=== PATIENT | female | born 1960 | race Caucasian/White ===

== ENCOUNTER 2017-01-15 16:19 | Inpatient (IN) ==
--- NOTE | 2017-01-15 16:43 | XRay Report ---
Exam: XR chest 2V Indication: Shortness of breath following lung biopsy 01/14/2017 Comparison study: Chest radiograph 01/14/17 Findings: Since yesterday, the patient has developed a moderate sized pneumothorax. The area of opacity within the left hilar region appears essentially unchanged from prior. Right lung is clear. Impression: Moderate to large left-sided pneumothorax has developed since discharge following left lung nodule biopsy. PROCEDURE INTERPRETED AT [facility] DEPARTMENT OF RADIOLOGY Final Report Signed by: Marin Hameed
--- NOTE | 2017-01-15 16:50 | IR History and Physical Update ---
IR Pre-Procedure - History and Physical H&P was reviewed, the patient examined and there: are no changes in the patients condition since last H&P was completed. Reason for procedure:: left pneumothorax - Dictation Physical: refer to scanned H&P - Physical Exam Mental Status: alert and oriented Heart: regular rate and rhythm Lung: clear to auscultation (distant breath sounds on the left) Abdomen: within normal limits - Sedation IR anesthesia plan for sedation: none ASA Class: II Airway Assessment: Class II: Soft palate, uvula, fauces visible - Risks Risks: Procedures explained. Risks discussed include, but not limited to, the following:[bleeding, infection, injury to adjacent structures ] All questions answered. The following alternatives were discussed:[ none] Risks and benefits discussed with: patient, spouse Consent obtained from: patient, spouse Assessment and Plan - Time spent with patient Time spent with patient: Less than 30 minutes (1) Pneumothorax of left lung after biopsy Problem details: developed after discharge Status: Acute Assessment and plan: place chest tube and admit to hospital Current Visit: Yes
--- NOTE | 2017-01-15 17:30 | Post Interventional Procedure ---
Pre-op diagnosis: left pneumothorax Post-op diagnosis: same Procedure: left chest tube placement Contrast: none Flouroscopy: 0.3 min Radiologist: Mrain Hameed Anesthesia: local Specimens: none sent Estimated blood loss: none Complications: none Condition: stable Description/Findings: Successful placement of an 8 Irish Cook pigtail drainage catheter into the pleural space. Patient tolerated the procedure well. Assessment and Plan - Time spent with patient Time spent with patient: Less than 30 minutes (1) Pneumothorax of left lung after biopsy Problem details: developed after discharge Status: Acute Assessment and plan: place chest tube and admit to hospital Current Visit: Yes
--- NOTE | 2017-01-15 17:37 | Interventional Radiology Rpt ---
IR thoracentesis w cath insert Chest tube placement with fluoroscopic guidance Clinical Information: 56-year-old female with history of lymphoma and status post left hilar nodule biopsy 01/14/2018 and subsequently developed pneumothorax after discharge. Patient returns today and repeat chest radiograph demonstrates a moderate to large pneumothorax and the patient is mildly short of breath but otherwise in stable condition without significant chest pain. Physician[s]: Dr. Hameed Procedure: The patient was advised of the benefits, risks, and alternatives of the procedure and informed consent was obtained. A time out was performed with verification of the patient's name, MRN, site of procedure, and type of procedure to be performed. The patient was positioned in the supine position on the stretcher. The site was prepped and draped in the usual sterile fashion. Local anesthesia only was used for the procedure. Fluoroscopic imaging demonstrates the left moderate to large pneumothorax. The anticipated puncture site area was anesthetized using 1% lidocaine. A 19-gauge needle was advanced into the pleural space at the second intercostal space along the midclavicular line. There was return of air, as expected. An Amplatz wire was advanced into the pleural space. An 8 Mauritanian Cook all-purpose pigtail drainage catheter was advanced over the wire and coiled within the pleural space. The pigtail was locked in position and sutured to the skin using Percu-Stay device. A sterile dressing was applied. The chest tube was connected to a Pleur-evac suction and placed to low wall suction. The patient tolerated the procedure well and was returned to the PRU in stable condition. EBL: < 5 mL. Complications: None. Total fluoroscopy time: 0.3 minutes. Total number of images for the procedure: 1 Conclusion: Successful placement of an 8 Mauritanian Cook pigtail drainage catheter into the pleural space. Patient tolerated the procedure well. PROCEDURE INTERPRETED AT [facility] DEPARTMENT OF RADIOLOGY Final Report Signed by: Marin Hameed
[2017-01-15] MEDS ORDERED: MORPHINE 2 MG/1 ML SYRINGE IV PRN (18:24)
--- NOTE | 2017-01-16 07:50 | Oncology Progress Note ---
Oncology Subjective PN Interval history: Ms. Brooks is known to me. I have followed her for non-Hodgkin's lymphoma. This was treated elsewhere several years ago. We have found that she had an abnormal chest x-ray earlier this year with a lung mass. It has now been biopsied and is a non-small cell lung cancer. She is a non-smoker and has never smoked. She has had a PET scan that suggests that this is an early stage lung cancer without evidence of metastases outside of the lung and with relatively limited mass-effect within the lung itself. I am requesting that the pathologist, Dr. Garrett, send tissue for PDL1 and ALK studies on this tumor. We will plan to present her to tumor board, possibly. However, she is already been presented. Now that we have the tissue diagnosis we will discuss treatment options with her. Her pathology specimen is [id number]. She has been in long-term remission from her lymphoma. On physical examination she is fully oriented and alert. ENT: Oral mucosa and pharynx are normal. Trachea is midline and she has no neck masses. Cardiovascular: Her heart rhythm is regular without murmur, gallop or rub. There is no jugular venous distention, clubbing or cyanosis. Abdomen: She has no abdominal masses, organomegaly, distention or tenderness. Eyes: Normal lids and conjunctivae. Musculoskeletal: There is no focal muscle atrophy or bone or joint deformity. Neurologic: Cranial nerves II through XII are intact. There are no focal neurologic deficits. Nodes: There is no cervical, submandibular, supraclavicular or axillary adenopathy. Psychiatric: She is oriented to time, place, person and situation. Impression: #1: Newly diagnosed adenocarcinoma of the lung. #2: Remote history of non-Hodgkin's lymphoma that has been in remission for quite some time. Exam - Constitutional Vitals: Period Temp Pulse Resp BP Sys/Kaur Pulse Ox Last 24 Hr 96.7 F-98.6 F 75-99 16-22 103-178/63-98 95-97
--- NOTE | 2017-01-16 09:08 | XRay Report ---
XR chest post procedure Indication: Left-sided pneumothorax. Comparison: Chest x-ray 01/15/2017 Technique: PA/lateral chest x-ray. Findings: Left-sided chest tube is present. Reexpansion of the left lung is noted completely. Minimal atelectatic band within the mid left chest versus parenchymal nodule or mass is stable. Right lung is clear. Heart size is normal. Elevation of the left hemidiaphragm is stable. Impression: 1. Interval decompression of left chest by placement of left-sided chest tube. Complete reexpansion of the left lung is noted. 01/16/2017 9:03 AM PROCEDURE INTERPRETED AT [facility] DEPARTMENT OF RADIOLOGY Final Report Signed by: Dr. Emory Javed
--- NOTE | 2017-01-16 13:16 | XRay Report ---
XR chest 2V Indication: Clamped chest tube Comparison: 16 January 2017 at 6:35 AM Findings: The heart and mediastinum are stable in size and configuration. Chest tube remains unchanged in position. No recurrent pneumothorax is seen. The pulmonary vascularity is normal in caliber. Left midlung density is stable in appearance. No other lung infiltrates, effusions, pneumothorax or other abnormality is demonstrated. Impression: No significant change after clamping of chest tube. PROCEDURE INTERPRETED AT [facility] DEPARTMENT OF RADIOLOGY Final Report Signed by: Dr. Cade Cartagena
--- NOTE | 2017-01-17 07:43 | Oncology Progress Note ---
Oncology Subjective PN Interval history: I ordered ALK and PDL1 studies to be done on the patient's tissue. The pathologist should be obligated to acknowledge this fact but they do not. I have no idea whether or not these 2 studies are going to be done. I am giving the patient information on early stage non-small cell carcinoma of the lung as well as Abraxane, carboplatin and Avastin. I am also suggesting to her that we have a Mediport catheter placed. I anticipate treating this cancer with Abraxane, carboplatin and Avastin versus targeted therapy. With the perihilar involvement, she would have to have a left pneumonectomy if he were treated surgically. However I will discuss this with her as well. She had a PET scan done December 17, 2016 that demonstrates a 1.9 cm area of increased uptake of SUV up to 3.1 within the superior segment of the left lower lobe in the perihilar region without any other increase in activity anywhere else in the lung or throughout the body. This suggests stage I lung cancer. However, an adenocarcinoma of the lung adjacent to the hilum, like this 1, would carry a high risk of microscopic hilar node involvement. I proposed to present her case to tumor board. Treatment options include Left pneumonectomy Radiation therapy Chemotherapy prior to pneumonectomy Chemotherapy prior to radiation therapy I am consulting Dr. Adarsh Gonzalez to see her. He is already familiar with her case. If we do pneumonectomy, he needs to evaluate her to give us his opinion about how well she might tolerate it. Exam - Constitutional Vitals: Period Temp Pulse Resp BP Sys/Kaur Pulse Ox Last 24 Hr 96.7 F-98.0 F 74-87 16-20 101-145/61-77 95-98
--- NOTE | 2017-01-17 08:22 | XRay Report ---
History: Pneumothorax Date: 01/17/2017 at 7:28 AM Study: Chest x-ray PA and lateral Comparison exam: 01/16/2017 The left-sided pneumothorax persists and measures only slightly larger than on the chest x-ray from the previous day. The left chest tube is stable in position. There is continued platelike atelectasis in the left mid to lower lung. The right lung is well-expanded and clear. The cardiomediastinal silhouette and pulmonary vasculature are unchanged. There is no significant pleural effusion. Osseous structures are unchanged. Impression: Persistent left-sided pneumothorax, minimally increased in size. Otherwise unchanged PROCEDURE INTERPRETED AT [facility] DEPARTMENT OF RADIOLOGY Final Report Signed by: Dr. Maria Elena Aranda
--- NOTE | 2017-01-17 16:22 | Pulmonology Consult Note ---
<James Hoskins - Last Filed: 01/17/17 16:24> History of Present Illness Chief complaint: Lung cancer History of present illness: James Hoskins, ANP-BC, GNP-BC, acting as scribe for Dr. Jeff Gonzalez Ms. Brooks is a 56 year old white female who we've been asked to see in pulmonary consultation for evaluation and treatment. The request for consultation was made by Dr. Singh. This patient was seen 12/26/16 at [facility] by Paige Scott NP, on referral from Dr. Singh. The patient was also seen by Dr. Gonzalez in consultation with Paige. She has a history of non-hodgkin's lymphoma diagnosed in 2008 while she was living in [place]. Dr. Singh's notes stated she had "bulky mediastinal disease". She was referred for an abnormal CT/CXR. On films done 11/27/16 compared to films done 11/28/15 there were changes in the left lung with linear atelectasis extending laterally in a wedge shaped fashion from the left hilum and the left hilum was more prominent. There was also chronic elevation of the left hemidiaphragm. CT was done 12/06/16 that showed a 24mm maximum diameter noncalcified mass like parenchymal density with some spiculation in the superior segment of the left lower lobe along with some patch and nodular and strandy parenchymal change in the left lower peripheral to this area which was noted could represent a post-obstructive pneumonia. There were at least 4 scattered noncalcified nodules, some of which were sub solid in the RUL and RLL , measuring 6mm or less. No shay mediastinal or hilar lymphadenopathy was noted. PET scan was done 12/17/16. It showed a volume hypermetabolism within the superior segment of the LLL which measured approximately 1.9cm and was suspicious for malignancy. There was also some mild uptake in the surrounding superior aspect of the LLL in a region of atelectasis/consolidation suspicious for postobstructive pneumonia. On 01/02/17 she underwent FOB by Dr. Gonzalez. Brushings and lavages were reported as class II. No AFB or fungus was seen on direct smear. There were no positive cultures. She was subsequently referred to IR for CT guided needle biopsy. On 01/14/17 she underwent needle biospy by Dr. Hameed and developed a pneumothorax. A chest tube was placed and she was admitted for further evaluation and care. The biopsy results were positive for non small cell carcinom. Immunophenotype consistent with primary pulmonary adenocarcinoma. Allergies: None Home medications: See list Past medical history: Non-hodgkins lymphoma. Colon polyps. Constipation. Diarrhea. Hemorrhoids. High blood pressure. Osteopenia. Surgical history: Back surgery. Family history: Colon polyps in her brother. Diabetes in her father and aunt. Acute NE in her aunt and uncle. Social history: She drinks one glass of wine daily. She has never used tobacco. She is unemployed. Home Medications Medication Instructions Recorded Confirmed Type Multivitamin [Multivitamins] 1 tablet PO DAILY 01/11/16 01/15/17 History Aspirin [Ecotrin] 81 mg PO DAILY 12/28/16 01/15/17 History Beclomethasone 80 Mcg Inhaler 2 puffs INH BID 01/01/17 01/15/17 History [Qvar 80 Mcg] Ca/D3/Mag Ox/Zinc/Take Down Sorter/Mandeep/Bor 1 each PO DAILY 01/01/17 01/15/17 History [Calcium 600-D3 Plus Caplet] Fexofenadine/Pseudoeph 60-120 1 tablet PO BID PRN 01/01/17 01/15/17 History [Magdalena D 12 Hour] Fluticasone Propionate 2 spray BOTH NARES DAILY 01/01/17 01/15/17 History [Fluticasone 50 mcg Nasal Oscar] Ibuprofen/Diphenhydramine HCl 1 capsule PO BEDTIME PRN 01/01/17 01/15/17 History [Advil PM Cap] Lactobacillus Combo No.6 1 each PO DAILY 01/01/17 01/15/17 History [Probiotic Complex] Loratadine [Claritin] 10 mg PO DAILY 01/01/17 01/15/17 History Triamterene/Hydrochlorothiazid 1 each PO DAILY 01/01/17 01/15/17 History [Triamterene-Hctz 37.5-25 mg Cp] Vitamin B Complex 1 each PO DAILY 01/01/17 01/15/17 History Allergies Allergy/AdvReac Type Severity Reaction Status Date / Time No Known Allergies Allergy Verified 01/14/17 07:35 Exam (Pulmonay) H&P - Constitutional Vitals: Period Temp Pulse Resp BP Sys/Kaur Pulse Ox Last 24 Hr 96.7 F-98.1 F 74-89 16-20 101-143/61-93 95-98 Medical,Surgical,& Family Hx - Medical History Cardio: History of: Hypertension Neurology: No history of: Seizures HEENT: History of: Eye Problem (GLASSES) Respiratory: Comment Only: Respiratory Problems (NON HODGKINS LYMPHOMA) Gastrointestinal: History of: Polyps (2008; removed during colonoscopy), Ulcerative Colitis Comment Only: GI Problems (HX ABD PAIN LEFT LOWER QAD DUE TO POOR DIET) Musculoskeletal: History of: Back/Neck Problems Reproductive: History of: Abnormal Pap Smear, Endometriosis Other: History of: Cancer (NON HODGKINS -HX DR SINGH) No history of: Anesthesia Reactions - Surgical History Abdominal Surgeries: Surgical HX of: Colonoscopy (2008 with polyps removed; 2014 Negative), EGD (2008 Negative) Reproductive Surgeries: Surgical HX of;: Gynecologic Surgery (LAPAROSCOPY) Orthopedic Surgeries: Surgical HX of;: Orthopedic Surgery (FUSION OF NECK PT HAD NAUSEA FROM ANESTHESIA PT DOES NOT REMEMBER HOSP) - Family History Family History: Reports;: Family Cancer (SISTER MOM), Family Diabetes (DAD AUNT) , Family Heart Disease (SISTER), Family Hypertension (ALL SIBLINGS MOM), Family Stroke (M- GRANDMOTHER) - Social History Smoking Status: Unknown if ever smoked Frequency of Alcohol Use: Occasionally Type of Drug Use: None Specialty Discharge - Follow Up or Referrals Follow up with: Messi Singh MD [Physician] - (Call his office to set up appointment in 8- 9 days.) <CarlosJeff velasquez - Last Filed: 01/22/17 10:13> History of Present Illness History of present illness: Patient likes to walk. She says with her neck and back problems walking is what a few exercises she can still comfortably do. She says she and friends frequently walk 2 or more miles. She says she is able to walk up [place] " without any significant shortness of breath. He is also a baseball fan. She grew up in [place] and on TV they were able to get the metastases in the [facility]. She now watches the [employer]. Physical exam Vital signs. See below Psychiatric. Intelligent. Oriented 3. Neurologic. Cranial nerves are intact. Long track motor functions intact. Gait is normal. Sensory exam was not done. Pupils irises sclera conjunctiva eyelids normal face is symmetrical nares lips tongue become mucosa normal. Neck. Symmetrical no meningismus Lymphatics no submandibular cervical supraclavicular or epitrochlear adenopathy Chest. Clear breath sounds. No chest wall tenderness. Heart. No gallop. Abdomen. Nontender. Nondistended. Positive bowel sounds Extremities. No edema. No evidence of deep venous thrombophlebitis. Arterial. Carotid upstroke is good. Upper extremity pulses are palpable posterior tibial pulses are palpable. Venous exam neck upper and lower extremities are normal. No evidence of deep venous thrombophlebitis Musculoskeletal. Decreased range of flexion and extension with the neck and with the lumbar spine. The remainder the physical exam is noncontributory. Impression. 1. See past history 2. Adenocarcinoma the left lung. This could not be reached endobronchially and required a transthoracic biopsy which resulted in small pneumothorax which should resolve. This carcinoma may be a fissure was suggested may be in a lymph node in the fissure. On PET scan a left hilum did not show any activity. In the past the patient had radiation therapy to the mediastinum for lymphoma. At the present time the genetic markers for the lung biopsy are pending. Recommendations. 1. If the left hilum and the mediastinum are negative. From a physiologic standpoint and from a pulmonary.. Because of the location of the tumor which may very well be in the major fissure pneumonectomy may be required if surgery is the right approach.. function standpoint this patient could tolerate her left pneumonectomy. Alternatively, depending upon the genetic markers chemotherapy and/or radiation therapy may be the best treatment choice. Keep in mind adenocarcinomas usually early to metastasize to the mediastinum and hilum. Before pneumonectomy I would want negative hilar biopsies. 2. Dr. Mauricio Singh and I have discussed these options. Once we had a complete biopsy reports and will confer to make a choice. 3. These possibilities and options have also been discussed with Mrs. Brooks Exam (Pulmonay) H&P - Constitutional Vitals: Period Temp Pulse Resp BP Sys/Kaur Pulse Ox Last 24 Hr 96.7 F-98.1 F 74-89 16-20 101-143/61-93 97-98 Results - Labs CBC & BMP: 01/18/17 08:40 01/18/17 08:40
--- NOTE | 2017-01-18 08:08 | Oncology Progress Note ---
Oncology Subjective PN Interval history: Ms. Brooks has a persistent pneumothorax. I have consulted Dr. Gonzalez on her case. I am taking her in transfer. We have documented that she has an adenocarcinoma of the lung. She is a non-smoker. I have requested EGFR, ALK and PDL 1 studies to be done. Also ordered a "wet biopsy" and in spite of the fact that I have gone over this repeatedly with the lab, they are questioning what study I want. Today's chest x-ray and lab work are still pending. I will check back on them later. I have had a long discussion today with the patient and with her including the fact that it is fine with me if they choose to seek a second opinion. They really did not bring that up. My plan is to present her case to tumor board again, now that we have tissue diagnosis. It took 2 days for the lab to on her my order concerning EGFR, ALK and PDL1. They never called me personally which is a chronic and worrisome issue. We are continuing chest tube drainage until the pneumothorax seals. Exam - Constitutional Vitals: Period Temp Pulse Resp BP Sys/Kaur Pulse Ox Last 24 Hr 97.1 F-98.1 F 68-89 16-20 95-143/52-93 94-98 Results - Labs CBC & BMP: 01/18/17 08:40 01/18/17 08:40
--- NOTE | 2017-01-18 08:31 | XRay Report ---
Portable chest Date: 01/18/2017 Clinical history: Chest 2 Comparison: 01/17/2017 Technique: Portable AP sitting chest Findings: The heart is normal in size. Progressive relative elevation of the left hemidiaphragm. Residual left pleural catheter with smaller left pneumothorax which measures 11 mm from the pleural line to the lung apex compared to 24 mm. Persistent subsegmental atelectasis with residual density in the superior segment of the left lower lobe. Impression: Smaller left pneumothorax with progressive elevation of the left hemidiaphragm. Persistent left pleural catheter with residual masslike density in the left lower lobe with adjacent atelectasis. PROCEDURE INTERPRETED AT [facility] DEPARTMENT OF RADIOLOGY Final Report Signed by: Dr. Salome Valerio
[2017-01-18 08:56] LABS: Eosinophils # 0.1 10*3/uL (0.0-0.87); Eosinophils % 2.4 % (0.00-10.9); Hemoglobin 13.7 GM/DL (12.0-16.0); Immature Granulocytes % 0.5 %; Immature Granulocytes Absolute 0.02 #; Lymphocytes % 23.6 % (21.3-54.2); Mean Corpuscular HGB Conc 32.6 GM/DL (32-36); Mean Corpuscular Hemoglobin 29 PG (27-34); Mean Corpuscular Volume 89.7 FL (87-102); Mean Platelet Volume 10.7 FL (9.6-12.0); Monocytes # 0.4 10*3/uL (0.11-0.8); Monocytes % 9.1 % (1.7-12.7); Neutrophils # 2.6 10*3/uL (1.4-7.4); Neutrophils % 63.4 % (38.7-73.9); Platelet Count 208 T/CUMM (130-400); Red Blood Count 4.68 MC/CUMM (3.8-5.5); Red Cell Distribution Width 12.9 % (9.3-17.3); White Blood Count 4.2 T/CUMM (4-12)
[2017-01-18 09:23] LABS: Albumin 3.8 G/DL (3.4-5.0); Bilirubin,Total 0.5 MG/DL (0.2-1.0); Calcium 9.1 MG/DL (8.5-10.1); Osmolality,Calculated 275.7 MOS/KG (273-304); Potassium 4.2 MMOL/L (3.5-5.1); Total Protein 6.8 G/DL (6.4-8.3)
--- NOTE | 2017-01-18 11:03 | XRay Report ---
Exam: XR chest 1V portable Date: 01/18/2017 at 10:19 AM Indication: Follow-up chest tube, clamp Comparison: 01/18/2017 7:44 AM Technical: AP portable Findings: The exam reveals a thoracotomy tube over the left chest with increased size of the left pneumothorax with the tube clamped. There is elevation left hemidiaphragm and atelectatic change mass in the left perihilar region. Heart is normal in size. Mediastinum is otherwise intact. Prior cervical fusion noted. Impression: 1. Thoracotomy tube in place with increased size pneumothorax with the tube clamped. The tube will be placed back on suction. PROCEDURE INTERPRETED AT [facility] DEPARTMENT OF RADIOLOGY Final Report Signed by: Dr. Jeff Jimenez
--- NOTE | 2017-01-18 11:51 | Pulmonology Progress Note ---
<James Hoskins - Last Filed: 01/18/17 14:39> Pulmonary - PN: Subj Interval history: James Hoskins, ANP-BC, GNP-BC, acting as scribe for Dr. Jeff Gonzalez Mrs. Brooks is a 56 year old white female who we saw in initial pulmonary consultation on 01/17/17. She was seen today along with her and Gena Cochran, RN. The patient's case has been discussed with Dr. Presley and we have coordinated our care. There are some genetic markers pending that would/could alter her treatment (pneumonectomy, chemotherapy, etc...), so we are awaiting those results. The patient states she understands everything that Dr. Presley discussed with her this morning. She has a newly diagnosed adenocarcinoma of the lung. She has also been followed by Dr. Presley for non-hodgkins lymphoma. She developed a pneumothorax after needle biopsy. She has no complaints or concerns this morning. Her chest tube remains in place. This is being managed by Dr. Hameed (IR). Medications have been reviewed. We made no changes today. Labs have been reviewed. Exam (Progress Note) - Constitutional Vitals: Period Temp Pulse Resp BP Sys/Kaur Pulse Ox Last 24 Hr 97.1 F-98.1 F 68-89 16-20 95-143/52-93 94-98 Exam: Chest is clear; chest tube is in place Heart no gallop Abd is nontender and nondistended; BS positive x 4 Ext with nothing to suggest acute DVT Psych oriented x 3 Neuro long tract motor function is intact Plan: Continue present treatment. Dr. Hameed is managing the patient's chest tube. Presently it is clamped. Await genetic testing as per Dr. Presley. Results - Labs CBC & BMP: 01/18/17 08:40 01/18/17 08:40 Specialty Discharge - Follow Up or Referrals Follow up with: Messi Presley MD [Physician] - (Call his office to set up appointment in 8- 9 days.) <CarlosJeff - Last Filed: 01/22/17 10:12> Results - Labs CBC & BMP: 01/18/17 08:40 01/18/17 08:40
[2017-01-19] MEDS ORDERED: MAGNESIUM HYDROXIDE SUSP 30 ML UDCUP PO PRN (10:35)
[2017-01-19] MEDS ORDERED: LACTULOSE 20 GM/30 ML UDCUP PO PRN (10:36)
--- NOTE | 2017-01-19 12:38 | Oncology Progress Note ---
Oncology Subjective PN Interval history: Tumor markers are pending. Radiology has not read the report on the chest x-ray today. The patient still has a chest tube in place that needs to be removed if she is stable. I have taken her in transfer but am not prepared to discharge her today. I am told that Dr. Jimenez is checking a chest x-ray today. I have requested ALK, PDL1 and EGFR studies to be done on her tumor if there is enough tissue. I have received no report from pathology as to whether or not all of these tests can be run. I actually need the PDL1 and the EGFR prior to the ALK. On physical examination she is fully oriented and alert. I hear breath sounds bilaterally and they appear the same. Heart sounds are normal. Cranial nerves II through XII are intact. There are no focal neurologic deficits. Exam - Constitutional Vitals: Period Temp Pulse Resp BP Sys/Kaur Pulse Ox Last 24 Hr 96.8 F-98.2 F 70-89 16-19 95-127/58-78 95-96 Results - Labs CBC & BMP: 01/18/17 08:40 01/18/17 08:40
--- NOTE | 2017-01-19 14:20 | XRay Report ---
History: Pneumothorax. Chest tube. Lung cancer Date: 01/19/2017 Study: Chest x-ray AP portable Comparison exam: 01/18/2017 The pleural pigtail drainage catheter over the left hemithorax is stable in appearance. There is no pneumothorax on this current exam. There is some platelike atelectasis in the left mid to lower lung with elevation of the left hemidiaphragm as before. The right lung is clear. There is stable cardiomegaly. The mediastinal contours are unchanged. The osseous structures are similar. Impression: No evidence of a pneumothorax. Atelectatic changes left mid to lower lung. Stable positioning of the left chest tube. PROCEDURE INTERPRETED AT [facility] DEPARTMENT OF RADIOLOGY Final Report Signed by: Dr. Maria Elena Aranda
--- NOTE | 2017-01-19 17:11 | XRay Report ---
History: Patient with pneumothorax following lung biopsy. Chest tube clamped Date: 01/19/2017 at 4:09 PM Study: Chest x-ray single view portable Comparison exam: 01/19/2017 at 10:19 AM There is no evidence of a pneumothorax on the left. The chest is otherwise unchanged from the study performed earlier the same day. Impression: No evidence of a pneumothorax following clamping of the chest tube PROCEDURE INTERPRETED AT [facility] DEPARTMENT OF RADIOLOGY Final Report Signed by: Dr. Maria Elena Aranda
--- NOTE | 2017-01-19 17:55 | XRay Report ---
History: Patient with left pneumothorax now status post chest tube removal Date: 01/19/2017 at 5:42 PM Study: Chest x-ray inspiration and expiration Comparison exam: 01/19/2017 at 4:09 PM There is no significant pneumothorax following chest tube removal. There is continued platelike atelectatic change extending from the left hilum. There is some continued elevation of the left hemidiaphragm. The exam is otherwise unchanged. Impression: No significant pneumothorax following chest tube removal PROCEDURE INTERPRETED AT [facility] DEPARTMENT OF RADIOLOGY Final Report Signed by: Dr. Maria Elena Aranda
--- NOTE | 2017-01-20 09:33 | XRay Report ---
History: Pneumothorax following lung biopsy. Follow-up chest tube removal. Lung cancer Date: 01/20/2017 Study: Chest x-ray PA and lateral Comparison exam: 01/19/2017 There is no pneumothorax. There is continued strandy and patchy atelectasis and postbiopsy change in the left midlung as before. There is no increasing pleural effusion. There is prominent elevation of the left hemidiaphragm without change, similar to previous studies. The cardiomediastinal silhouette is stable. The pulmonary vasculature is not engorged. Osseous structures are similar. Impression: No adverse interval change compared to the previous day. No evidence of recurrent pneumothorax. PROCEDURE INTERPRETED AT [facility] [place] DEPARTMENT OF RADIOLOGY Final Report Signed by: Dr. Maria Elena Aranda
[2017-01-20 12:32] VITALS: BP 105/70
--- NOTE | 2017-01-20 12:38 | Discharge Summary ---
Hospital Course - Hospital Course Hospital Course: Diagnoses: #1: Pneumothorax following needle biopsy of the chest #2: Newly diagnosed adenocarcinoma of the lung, stage I or possibly stage II with multiple markers pending including EGFR, ALK, PDL1. #3: Remote history of diffuse large cell CD20 positive non-Hodgkin's lymphoma in remission I had been following this patient for non-Hodgkin's lymphoma initially diagnosed March 17, 2009 and treated in [place]. She had no evidence recurrence after treatment with Rituxan, Cytoxan, Adriamycin and vincristine and radiation therapy. She received Rituxan, Cytoxan, Adriamycin, vincristine and prednisone. On a routine chest x-ray done on clinic visit on November 27, 2016, the patient was found to have a left lung mass. A PET scan showed a small amount of activity but unfortunately this masses adjacent to the left hilum and I am very worried about its location as far as easy resectability. She underwent needle biopsy recently that confirmed that this was an adenocarcinoma of the lung ( pathology specimen number [id number]) with no evidence of involvement beyond the left lung itself. I have subsequently requested the tumor markers mentioned above to be done because this patient is not a smoker and has never smoked cigarettes. She was admitted at this time because she suffered a pneumothorax while having the needle biopsy done. She has had a chest tube in place until yesterday when it was removed. Her chest x-ray today does not demonstrate any evidence of pneumothorax. I am discharging the patient at this point and she is to call to set up an appointment to see me sometime next week. I have given her information on all treatment options including surgery, radiation, chemotherapy that would include Abraxane, carboplatin and Avastin but might also include additional forms of therapy depending on identification of any targeted markers. During this study, Dr. Adarsh Gonzalez was consulted and I appreciate his help. She was actually admitted by Dr. Marin Hameed but I took her in transfer because it took a while for the patient's pneumothorax to clear. I will be discussing her case with the consultants prior to her appointment to see me in 8 or 9 days. - Time spent with patient Time with patient DS: Greater than 30 minutes Discharge Plan - Discharge Data Disposition: Disch To Home/Self Care Condition at Discharge: Guarded Discharge Diet: advance to your usual diet Activity: resume usual activities as tolerated Hygiene: no restrictions Weight Bearing at Discharge: weight bear as tolerated Driving: other Contact your physician if you experience:: fever over 101, Difficulty voiding, Redness or swelling, Nausea/Vomiting, Shortness of breath, Bleeding, pain uncontrolled by pain medications - Discharge Medications Continue Multivitamin [Multivitamins] 1 tablet PO DAILY Aspirin [Ecotrin] 81 mg PO DAILY Loratadine [Claritin] 10 mg PO DAILY Lactobacillus Combo No.6 [Probiotic Complex] 1 each PO DAILY Beclomethasone 80 Mcg Inhaler [Qvar 80 Mcg] 2 puffs INH BID Fluticasone Propionate [Fluticasone 50 mcg Nasal [place]] 2 spray BOTH NARES DAILY Ca/D3/Mag Ox/Zinc/User Support Specialist/Mandeep/Bor [Calcium 600-D3 Plus Caplet] 1 each PO DAILY Vitamin B Complex 1 each PO DAILY Ibuprofen/Diphenhydramine HCl [Advil PM Cap] 1 capsule PO BEDTIME PRN PRN Reason: Insomnia Fexofenadine/Pseudoeph 60-120 [Magdalena D 12 Hour] 1 tablet PO BID PRN PRN Reason: Allergy Symptoms Triamterene/Hydrochlorothiazid [Triamterene-Hctz 37.5-25 mg Cp] 1 each PO DAILY - Follow Up or Referral - Forms/Instructions Additional Discharge Instructions: Discharge. Instructed patient to call my office around mid week to set up a follow-up visit. Exam - Constitutional Vitals: Period Temp Pulse Resp BP Sys/Kaur Pulse Ox Last 24 Hr 97.4 F-98.4 F 70-87 16-18 104-150/61-71 96-99 DS: Provider Date of admission: 01/17/17 11:30 Primary care physician: . No PCP Attending physician on admission: Marin Hameed MD Consults: 01/15/17 17:33 Consult to Physician [CONS] Routine Comment: biopsy results available Consulting Provider: Messi Presley Person Notified: aware Date Notified: 01/16/17 Time Notified: 07:30 01/16/17 07:55 Consult to Physician [CONS] Routine Comment: Need PDL1 on [id number] Consulting Provider: Rhae Garrett Consulting Provider Notified: No When should Consulting Provider be notified: Now Person Notified: aware Date Notified: 01/17/17 Time Notified: 09:46 01/16/17 08:05 Consult to Physician [CONS] Routine Comment: Need ALK on path# [id number] Consulting Provider: Rhea Garrett Person Notified: md trejo Date Notified: 01/17/17 Time Notified: 09:45 01/17/17 09:17 Consult to Physician [CONS] Routine Comment: Need your opinion on treatment options. Lung ca. Consulting Provider: Jeff Gonzalez 01/17/17 09:26 Consult to Physician [CONS] Routine Comment: EGFR on tumor Consulting Provider: Rhea Garrett Person Notified: Date Notified: 01/17/17 Time Notified: 09:45 Consult Notification Comment: consult by Dr. Presley Discharging clinician: Messi Presley MD
[2017-01-20] MEDS ORDERED: IBUPROFEN PO PRN (12:55)
[2017-01-20] MEDS ORDERED: NON-FORMULARY MEDICATION (Fexofenadine/Pseudoeph 60-120 1 TABLET) PO PRN (12:55)
[2017-01-20] MEDS ORDERED: DIPHENHYDRAMINE HCL PO PRN (12:55)
[2017-01-20] MEDS ORDERED: BECLOMETHASONE 80 MCG/PUFF INHALER 8.7 GM INH SCH (21:00)
[2017-01-21] MEDS ORDERED: ASPIRIN EC 81 MG TABLET PO SCH (09:00)
[2017-01-21] MEDS ORDERED: LORATADINE 10 MG TABLET PO SCH (09:00)
[2017-01-21] MEDS ORDERED: [UNRECOGNIZED DRUG - OTHER] PO SCH (09:00)
[2017-01-21] MEDS ORDERED: FLUTICASONE 50 MCG NASAL SPRAY 16 GM BOTTLE BOTH NARES SCH (09:00)
[2017-01-21] MEDS ORDERED: LACTOBACILLUS COMBO NO 6 PO SCH (09:00)
== END 2017-01-20 14:00 | disposition home or self-care (01) | DRG 200 ==
LOC: N.RAD 16:19 → N.5E 16:19 → OBSVTOIN 16:43 → INTOOBSV 16:43
PROVIDERS: ADMIT Radiology Diagnostic Radiology; ATTEND Specialist